=== PATIENT | male | born 1955 | race Caucasian/White ===

== ENCOUNTER 2021-12-22 13:58 | Outpatient (CLI) | payer OTHER, SELFPAY ==
--- NOTE | ~2021-12-22 | US_ITS ---
EXAMINATION: US arterial ankle brachial ind DATE: 12/22/2021 14:55 INDICATION: Left calf numbness and pain. 40 year smoker. TECHNIQUE: Segmental pressures and plethysmographic and Doppler waveforms of the brachial and lower e xtremity arteries were obtained. COMPARISON: None. FINDINGS: Right and left brachial artery pressures of 125 mm Hg and 131 mm Hg, respectively, are concordant (no rmal difference <= 30 mmHg). The right ankle-brachial index (KAYLA) is 1.17 (normal >= 0.9-1.0). The right great toe-brachial index (TBI) is 0.87 (normal >= 0.65). Arterial Doppler waveforms are biphasic at the posterior tibial arter y and triphasic at the dorsalis pedis artery. The left KAYLA is 1.11. The left TBI is 0.71. Arterial Doppler waveforms are biphasic. IMPRESSION: Normal bilateral KAYLA and TBI measurements Reviewed, dictated and finalized at [facility]. Reviewed, dictated and finalized at [facility].
== END 2021-12-22 13:59 | disposition home or self-care (01) ==
PROVIDERS: PCP Nurse Practitioner Family; Visit Provider Nurse Practitioner Family
DX: R09.89 Other specified symptoms and signs involving the circulatory and respiratory systems (principal); Z72.0 Tobacco use
CPT/HCPCS: 93922

== ENCOUNTER 2022-03-11 13:31 | Emergency (ER) | payer OTHER, SELFPAY ==
[2022-03-11 13:40] VITALS: BP 163/96; PULSE 83; RESP 20; TEMP 36.9; O2SAT 99
--- NOTE | 2022-03-11 14:03 | ED.ABDPAIN ---
HPI - Abdominal Pain General Chief Complaint: Abdominal Pain Stated Complaint: ABD PAIN Source: patient Mode of arrival: ambulatory Limitations: no limitations History of Present Illness HPI narrative: Patient presents for evaluation of leftlower quadrant abdominal pain. Symptom onset yesterday. Pain is intermittent, sharp, rated 6 out of 10 in severity. He has some nausea without vomiting. No fever, chills, change in bowel pattern. Last bowel movement this morning. Normal bowel pattern is 3 times per day. No blood or mucus in the stool. He has a history of diverticulitis and this feels similar. He states that he has received azithromycin 3 times in the past for diverticulitis and that alleviated his symptoms. He is up-to-date on colonoscopy. No hx of abdominal surgeries. He states stress causes a flare of diverticulitis. He has increased stress as of late. Related Data Home Medications Medication Instructions Recorded Confirmed melatonin 3 mg capsule 3 mg PO QPM 05/07/20 03/11/22 multivitamin 1 tablet PO DAILY 05/07/20 03/11/22 omega-3 fatty acids 1,000 mg 1,000 mg PO DAILY 05/17/20 03/11/22 capsule (Fish Oil Concentrate) pseudoephedrine HCl 30 mg tablet 30 mg PO Q4-6H PRN Nasal Congestion 12/13/21 03/11/22 (Sudafed) aluminum-mag hydroxide-simethicone 10 ml PO QID PRN Abdominal 03/11/22 03/11/22 200 mg-200 mg-20 mg/5 mL oral susp Discomfort famotidine 20 mg tablet (Pepcid) mg 03/11/22 Allergies Allergy/AdvReac Type Severity Reaction Status Date / Time ciprofloxacin Allergy Unknown Nausea And Verified 03/11/22 13:35 Vomiting Penicillins Allergy Unknown Rash Verified 03/11/22 13:35 Review of Systems Review of Systems: CONSTITUTIONAL: Denies fever, chills, or sweats. EYES: Denies visual changes, redness, or discharge. ENT: Denies rhinorrhea, congestion, sore throat, or otalgia. CARDIOVASCULAR: Denies chest pain, palpitations, or edema. RESPIRATORY: Denies cough or dyspnea. GASTROINTESTINAL: Reports abdominal pain. Denies nausea, vomiting, or diarrhea. GENITOURINARY: Denies dysuria or hematuria. SKIN: Denies rash or itching. MUSCULOSKELETAL: Denies back pain, joint pain, or myalgia. NEUROLOGIC: Denies headache, numbness, dizziness, or weakness. PSYCHIATRIC: Denies anxiety or depression. [facility] Past Medical History Medical History Anxiety Diverticulitis History of deviated nasal septum Hyperlipidemia Prediabetes Surgical History Surgical History History of nasal surgery deviated septum repair History of thyroidectomy partial - hx of thyroid nodules Family History Family History Father Hypertension Cerebrovascular accident, Onset Age: 84 Mother Cerebrovascular accident Family history of dementia Social History Social History Social History: Patient is to [place]. 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 Has smoked cigarettes for 50 years, max 1/2 pack per day. He smokes 1-2 cigarettes per day now. Years smoked: 50 Tobacco type: cigarettes Additional smoking assessment comments: 1-2 Cigarettes per day Alcohol intake: current Drinks per week: 2 Substance use: current Substance use type: marijuana Living arrangements: with family Gender identity (if verbalized by the patient): Male Sexual Orientation (if Verbalized by the Patient): Straight or Heterosexual Spiritual care concerns: No Exam Narrative: GENERAL: Well-appearing, well-nourished, and in no acute distress. HEAD: Normocephalic, atraumatic. EYES: PERRLA and EOMI. ENT: Nares clear, no rhinorrhea or epistaxis. Mucous membranes moist. Oropharynx without tonsillar hypertrophy exudate or other lesions. Bilateral TMs pearly ryan nonbulging NECK: Supple. No adenopathy
== END 2022-03-11 14:15 | disposition home or self-care (01) ==
PROVIDERS: Emergency Provider Nurse Practitioner; PCP Nurse Practitioner Family
DX: R10.9 Unspecified abdominal pain (principal); Z87.19 Personal history of other diseases of the digestive system; F17.210 Nicotine dependence, cigarettes, uncomplicated; E78.5 Hyperlipidemia, unspecified; R73.03 Prediabetes; F41.9 Anxiety disorder, unspecified
CPT/HCPCS: 99213; G0463

== ENCOUNTER 2022-08-07 01:55 | Day surgery (SDC) | payer OTHER, SELFPAY ==
[2022-07-28 12:50] VITALS: BMI 29.7
[2022-08-07 11:40] VITALS: BP 133/77; PULSE 71; RESP 18; TEMP 36.2; O2SAT 98; BMI 29.7
--- NOTE | 2022-08-07 11:52 | PM.HPGS ---
History of Present Illness History of Present Illness Consent: Risks, benefits, and alternatives have been discussed and questions answered. Patient agrees to proceed with procedure. Chief complaint: neoplasm screening, hx colon polyps Narrative: Dg Marie is a 66 year old male Presents for screening colonoscopy. Patient's current weight appetite bowel movements are normal. He denies abdominal pain. He has had no bleeding. Family history noncontributory. Patient does have a prior history of colon polyps on several previous occasions. Patient presents today for surveillance screening colonoscopy. Review of Systems Review of Systems: Review of systems noncontributory. [facility] Past Medical History Medical History (Updated 08/07/22 @ 11:53 by Arthur oDzier MD) Anxiety Aortic valve stenosis (~05/2022) Diverticulitis Enlarged prostate (~01/2022) Erectile dysfunction GERD without esophagitis History of deviated nasal septum Hyperlipidemia Murmur, cardiac (~05/2022) Prediabetes Surgical History Surgical History History of nasal surgery deviated septum repair History of thyroidectomy partial - hx of thyroid nodules Family History Family History Father Hypertension Cerebrovascular accident, Onset Age: 84 Mother Cerebrovascular accident Family history of dementia Social History Social History (Updated 06/23/22 @ 20:04 by Elba Lopez NP) Social History: Patient is to [place]. 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 Has smoked cigarettes for 50 years, max 1/2 pack per day. He smokes 1-2 cigarettes per day now. Smoking packs per day: 0.5 Smoking cigarettes per day: 10.0 Years smoked: 40 Smoking pack-years: 20.00 Smoking status: Current every day smoker Tobacco type: cigarettes and e-cigarettes/vaping Additional smoking assessment comments: Since 2017, e-cigarettes only Alcohol intake: current Drinks per week: 2 Substance use: current Substance use type: marijuana Other substance usage details: every few weeks Living arrangements: with family Gender identity (if verbalized by the patient): Male Sexual Orientation (if Verbalized by the Patient): Straight or Heterosexual Spiritual care concerns: No Meds Home Medications and Allergies Home Medications Medication Instructions Recorded Confirmed Type melatonin 3 mg capsule 3 mg PO QPM 05/07/20 08/07/22 History multivitamin 1 tablet PO DAILY 05/07/20 08/07/22 History omega-3 fatty acids 1,000 mg 1,000 mg PO DAILY 05/17/20 08/07/22 History capsule (Fish Oil Concentrate) pseudoephedrine HCl 30 mg tablet 30 mg PO Q4-6H PRN Nasal Congestion 12/13/21 08/07/22 History (Sudafed) aluminum-mag hydroxide-simethicone 10 ml PO QID PRN Abdominal 03/11/22 08/07/22 History 200 mg-200 mg-20 mg/5 mL oral susp Discomfort famotidine 20 mg tablet (Pepcid) 20 mg PO DAILY 03/11/22 08/07/22 History sildenafil 50 mg tablet 50 mg PO DAILY PRN sexual activity 05/02/22 08/07/22 Rx #30 tabs lorazepam 1 mg tablet 1 mg PO BID PRN anxiety 07/28/22 08/07/22 History Allergies Allergy/AdvReac Type Severity Reaction Status Date / Time ciprofloxacin Allergy Unknown Nausea And Verified 08/07/22 11:44 Vomiting Penicillins Allergy Unknown Rash Verified 08/07/22 11:44 Vital Signs Vital Signs - 24 hr 08/07/22 11:40 Temperature 97.2 F L Pulse Rate 71 Respiratory Rate 18 Blood Pressure 133/77 Pulse Oximetry 98 Oxygen Delivery Room Air Exam Narrative: Physical exam reveals patient to be alert. Vital signs stable. HEENT exam is unremarkable. Patient is anicteric. Lungs are clear to auscultation and percussion. Heart is without murmur or extra sounds. Abdomen bowel sounds are present soft nontender with no hepatosplenomegaly. Digital external rectal exam is normal. Assessment and Pl
[2022-08-07] MEDS: LACTATED RINGERS 1,000 ML 150 ML IV CONT (11:59)
--- NOTE | 2022-08-07 12:47 | WPDANESEPPF ---
Anes - Initial Pre Proc Eval Procedure: Operation Date: 08/07/22 13:00 Proposed Procedures p Screening Colonoscopy - Arthur Dozier MD Date/Time: 08/07/22 12:47 Surgeon: Arthur Dozier MD Pre Op Diagnosis: neoplasm screening, hx colon polyps Patient Data Age: 66 Gender: M Height: 1.73 m Weight: 88.8 kg Last Vital Signs Temp 97.2 F L 08/07/22 11:40 Pulse 71 08/07/22 11:40 Resp 18 08/07/22 11:40 BP 133/77 08/07/22 11:40 Pulse Ox 98 08/07/22 11:40 O2 Del Method Room Air 08/07/22 11:40 Allergies Allergy/AdvReac Type Severity Reaction Status Date / Time ciprofloxacin Allergy Unknown Nausea And Verified 08/07/22 11:44 Vomiting Penicillins Allergy Unknown Rash Verified 08/07/22 11:44 Home Medications Medication Instructions Recorded Confirmed Type melatonin 3 mg capsule 3 mg PO QPM 05/07/20 08/07/22 History multivitamin 1 tablet PO DAILY 05/07/20 08/07/22 History omega-3 fatty acids 1,000 mg 1,000 mg PO DAILY 05/17/20 08/07/22 History capsule (Fish Oil Concentrate) pseudoephedrine HCl 30 mg tablet 30 mg PO Q4-6H PRN Nasal Congestion 12/13/21 08/07/22 History (Sudafed) aluminum-mag hydroxide-simethicone 10 ml PO QID PRN Abdominal 03/11/22 08/07/22 History 200 mg-200 mg-20 mg/5 mL oral susp Discomfort famotidine 20 mg tablet (Pepcid) 20 mg PO DAILY 03/11/22 08/07/22 History sildenafil 50 mg tablet 50 mg PO DAILY PRN sexual activity 05/02/22 08/07/22 Rx #30 tabs lorazepam 1 mg tablet 1 mg PO BID PRN anxiety 07/28/22 08/07/22 History Patient hx anesthesia problems: none Family hx anesthesia problems: none Results Review: All pre-operative results and documents have been reviewed as part of the pre-operative evaluation. [facility] Past Medical History Medical History (Updated 08/07/22 @ 11:53 by Arthur Dozier MD) Anxiety Aortic valve stenosis (~05/2022) Diverticulitis Enlarged prostate (~01/2022) Erectile dysfunction GERD without esophagitis History of deviated nasal septum Hyperlipidemia Murmur, cardiac (~05/2022) Prediabetes Surgical History Surgical History History of nasal surgery deviated septum repair History of thyroidectomy partial - hx of thyroid nodules Family History Family History Father Hypertension Cerebrovascular accident, Onset Age: 84 Mother Cerebrovascular accident Family history of dementia Social History Social History (Updated 06/23/22 @ 20:04 by Elba Lopez NP) Social History: Patient is to [place]. 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 Has smoked cigarettes for 50 years, max 1/2 pack per day. He smokes 1-2 cigarettes per day now. Smoking packs per day: 0.5 Smoking cigarettes per day: 10.0 Years smoked: 40 Smoking pack-years: 20.00 Smoking status: Current every day smoker Tobacco type: cigarettes and e-cigarettes/vaping Additional smoking assessment comments: Since 2017, e-cigarettes only Alcohol intake: current Drinks per week: 2 Substance use: current Substance use type: marijuana Other substance usage details: every few weeks Living arrangements: with family Gender identity (if verbalized by the patient): Male Sexual Orientation (if Verbalized by the Patient): Straight or Heterosexual Spiritual care concerns: No Anes - Eval Final PreProcedure Day of Procedure 08/07/22 12:47 Patient weight: normal Heart: regular rate and rhythm Lungs: clear to auscultation Airway: Mallampati scale class II Neurological: alert and oriented Last oral intake: >/= 8 hours ASA classification: III Emergent: no Anesthetic plan: proceed Anesthesia type and monitoring: general GIVS and standard monitoring Results Review: All pre-operative results and documents have been reviewed as part of the pre-operative evaluation. Informed Consent: The patient's anesthetic p
[2022-08-07 13:27] VITALS: BP 105/64; PULSE 57; RESP 18; O2SAT 96
[2022-08-07 13:37] VITALS: BP 93/57; PULSE 54; RESP 18; O2SAT 96
[2022-08-07 13:47] VITALS: BP 106/70; PULSE 53; RESP 18; O2SAT 97
== END 2022-08-07 14:03 | disposition home or self-care (01) ==
PROVIDERS: PCP Nurse Practitioner Family; Visit Provider Internal Medicine Gastroenterology
PROC: 0DJD8ZZ Inspection of Lower Intestinal Tract, Via Natural or Artificial Opening Endoscopic (ICD-10-PCS; CPT 45378; principal; 2022-08-07 13:00)
DX: Z12.11 Encounter for screening for malignant neoplasm of colon (principal); K64.8 Other hemorrhoids; K57.30 Diverticulosis of large intestine without perforation or abscess without bleeding; Z86.010 Personal history of colon polyps; E78.5 Hyperlipidemia, unspecified; K21.9 Gastro-esophageal reflux disease without esophagitis; N40.0 Benign prostatic hyperplasia without lower urinary tract symptoms; I35.0 Nonrheumatic aortic (valve) stenosis; F17.290 Nicotine dependence, other tobacco product, uncomplicated; F12.90 Cannabis use, unspecified, uncomplicated
CPT/HCPCS: 45378; J2704; J7120

== ENCOUNTER 2023-02-14 20:40 | Emergency (ER) | payer OTHER, SELFPAY ==
--- NOTE | ~2023-02-14 | XR_ITS ---
EXAMINATION: XR chest 2V Exam Date/Time: 02/14/2023 21:06 CDT HISTORY: chest pain Comparison: 11/25/2015. RESULT: Lines, tubes, and devices: None. Lungs and pleura: Clear. Cardiomediastinal silhouette: Stable. Other: No acute osseous or upper abdominal finding. IMPRESSION: No acute cardiopulmonary process. Reviewed, dictated and finalized at location [facility].
--- NOTE | ~2023-02-14 | CT_ITS ---
EXAMINATION: CT brain wo con DATE: 02/14/2023 21:09 INDICATION: dizziness, weakness, blurry vision . TECHNIQUE: Computed tomography (CT) of the head was performed without intravenous contrast. The mA wa s adjusted according to patient size. Iterative reconstruction technique was employed. The dose-lengt h product was 605.33 mGy-cm. COMPARISON: 06/21/2010. FINDINGS: No acute intracranial hemorrhage or extra-axial fluid collection. No hydrocephalus, mass, or herniation. No acute ischemic infarct. Unremarkable dural venous sinus attenuation. No acute osseous abnormality. The aerated spaces are clear. IMPRESSION: No acute intracranial process. Reviewed, dictated and finalized at location [facility].
--- NOTE | ~2023-02-14 | CT_ITS ---
Clinical Indication: Chest pain, dizziness CT Scan of the Chest, Abdomen, and Pelvis with Contrast: Technique: Contiguous sections were acquired throughout the chest, abdomen, and pelvis after intraven ous administration of 100 cc of Omnipaque 350. Dose reduction technique was used on this scan by annalise robbins automated exposure control and iterative reconstruction technique. The dose-length product (DL P) was 987.81 mGy-cm. Findings: Status post right hemithyroidectomy. There is no evidence of any significant mediastinal, hilar or axillary lymphadenopathy. The mediastin al soft tissues appear normal. No aortic aneurysm or dissection. No large central pulmonary embolus s een. There is no evidence of pleural or pericardial effusion. The lungs are clear. No pulmonary nodules or infiltrates are noted. There is diffuse fatty infiltration of the liver. The spleen, pancreas, gallbladder, adrenals and kid neys are within normal limits. There are atherosclerotic calcifications of the aorta. No abdominal ao rtic aneurysm or dissection. No lymphadenopathy. No bowel obstruction or bowel wall thickening. There is colonic diverticulosis. Urinary bladder is unremarkable. Prostate gland is enlarged. Impression: No aortic aneurysm or dissection. No acute abnormality seen. Fatty infiltration of liver. Enlarged prostate gland. Reviewed, dictated and finalized at location . Impression: No aortic aneurysm or dissection. No acute abnormality seen. Fatty infiltration of liver. Enlarged prostate gland.
--- NOTE | 2023-02-14 20:41 | ECG_ITS ---
Measurements Intervals [place] Rate: 86 P: 55 MT: 151 QRS: -64 QRSD: 142 T: -12 QT: 383 QTc: 460 Interpretive Statements SINUS RHYTHM RIGHT BUNDLE BRANCH BLOCK LEFT ANTERIOR FASCICULAR BLOCK VOLTAGE CRITERIA FOR LVH BASELINE ARTIFACT- III, AVF, V5 ABNORMAL ECG NO PREVIOUS ECG AVAILABLE FOR COMPARISON Electronically Signed On 02-15-2023 8:09:17 CDT by Jarad Rodriguez D.O.
[2023-02-14 20:51] VITALS: BP 162/101; PULSE 79; RESP 20; TEMP 36.4; O2SAT 98
[2023-02-14 20:56] LABS: Basophils Absolute Auto 0.1 K/mm3 (0.0-0.1); Basophils Percent Auto 0.6 % (0.2-1.2); Eosinophils Percent Auto 0.5 % (0-4.4); Hematocrit 46.8 % (42.0-52.0); Hemoglobin 16.3 g/dL (14.0-18.0); Immature Granulocyte Absolute 0.02 K/mm3 (0.00-0.031); Immature Granulocyte Percent A 0.2 % (0-0.5); Lymphocytes Absolute Auto 3.86 K/mm3 (0.9-3.2); Lymphocytes Percent Auto 45.4 % (18.3-44.2); Mean Corpuscular HGB Conc 34.8 g/dl (32-36); Mean Corpuscular Volume 83.1 fl (80-100); Mean Platelet Volume 9.7 fl (7.4-10.4); Monocytes Absolute Auto 0.5 K/mm3 (0.1-0.6); Monocytes Percent Auto 6.2 % (2.6-8.5); Neutrophils Percent Auto 47.1 % (45.5-73.1); Platelet Count Result 246 k/mm3 (150-375); Red Blood Count 5.63 M/mm3 (4.6-6.20); Red Cell Distribution Width 13.8 % (11.5-14.5); White Blood Count 8.5 K/mm3 (4.5-10.0)
[2023-02-14 20:59] LABS: Glucose Point of Care 111 mg/dl (65-105)
[2023-02-14 21:06] LABS: INR 0.9; Partial Thromboplastin Time 25.7 SECONDS (22.3-36.8); Prothrombin Time 12.7 Seconds (11.1-14.7)
[2023-02-14 21:07] LABS: Alanine Aminotransferase 38 U/L (6-50); Albumin Level 4.8 g/dL (3.5-5.1); Alkaline Phosphatase 61 U/L (38-126); Anion Gap 10 mmol/L (8-16); Aspartate Amino Transferase 34 U/L (17-59); Bilirubin,Total 0.7 mg/dL (0.2-1.3); Blood Urea Nitrogen 17 mg/dL (9-20); Calcium 9.1 mg/dL (8.4-10.2); Carbon Dioxide 23 mmol/L (22-30); Chloride 103 mmol/L (98-107); Estimated CRCL calculation 77 ml/min; Estimated Glomerular Filt Rate > 60; Glucose 99 mg/dL (65-110); Lipase 118 U/L (23-300); Potassium 3.7 mmol/L (3.4-5.0); Sodium 136 mmol/L (137-145)
[2023-02-14 21:18] LABS: Troponin I < 0.012 ng/mL (0.000-0.034)
[2023-02-14] MEDS: BELLADONNA ALK/PHENOB ELIX 10 ML, MAG HYDROX/ALUMINUM HYD/SIMETH 30 ML, LIDOCAINE HCL 2... PO (22:42)
[2023-02-14] MEDS: LORazepam (*CRX) 1 MG TABLET PO (22:43)
--- NOTE | 2023-02-14 23:14 | ED.GENADULT ---
HPI - General Adult General Chief complaint: Chest Pain Stated complaint: chest pain Time Seen by Provider: 02/14/23 22:08 Related Data Home Medications Medication Instructions Recorded Confirmed melatonin 3 mg capsule 3 mg PO QPM 05/07/20 01/09/23 multivitamin 1 tablet PO DAILY 05/07/20 01/09/23 omega-3 fatty acids 1,000 mg 1,000 mg PO DAILY 05/17/20 01/09/23 capsule (Fish Oil Concentrate) pseudoephedrine HCl 30 mg tablet 30 mg PO Q4-6H PRN Nasal Congestion 12/13/21 01/09/23 (Sudafed) aluminum-mag hydroxide-simethicone 10 ml PO QID PRN Abdominal 03/11/22 01/09/23 200 mg-200 mg-20 mg/5 mL oral susp Discomfort famotidine 20 mg tablet (Pepcid) 20 mg PO DAILY 03/11/22 01/09/23 Allergies Allergy/AdvReac Type Severity Reaction Status Date / Time ciprofloxacin Allergy Unknown Nausea And Verified 02/14/23 21:54 Vomiting Penicillins Allergy Unknown Rash Verified 02/14/23 21:54 [facility] Past Medical History Medical History Anxiety Aortic valve stenosis (~05/2022) Diverticulitis Enlarged prostate (~01/2022) Erectile dysfunction GERD without esophagitis History of deviated nasal septum Hyperlipidemia Murmur, cardiac (~05/2022) Prediabetes Surgical History Surgical History History of nasal surgery deviated septum repair History of thyroidectomy partial - hx of thyroid nodules Family History Family History Father Hypertension Cerebrovascular accident, Onset Age: 84 Mother Cerebrovascular accident Family history of dementia Social History Social History (Updated 01/09/23 @ 15:03 by Margo Beltrán MA) Social History: Patient is to [place]. 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 Has smoked cigarettes for 50 years, max 1/2 pack per day. He smokes 1-2 cigarettes per day now. Smoking packs per day: 0.5 Smoking cigarettes per day: 10.0 Years smoked: 40 Smoking pack-years: 20.00 Smoking status: Current every day smoker Tobacco type: cigarettes and e-cigarettes/vaping Additional smoking assessment comments: Since 2017, e-cigarettes only Alcohol intake: current Drinks per week: 2 Substance use: current Substance use type: marijuana Other substance usage details: every few weeks Lack of Transportation: No Lack of Food: Never True Current Housing: I Have Housing Concerned About Future Housing: No Difficulty Paying Gas/Electric Bills: No Difficulty Paying for Meds: No Currently Unemployed: No Education: Master's Degree or Higher Difficulty w/ Childcare or Family Care: No Living arrangements: with family Occupation/Education: occupation Gender identity (if verbalized by the patient): Male Sexual Orientation (if Verbalized by the Patient): Straight or Heterosexual Spiritual care concerns: No Agree to blood products: Yes Course Vital Signs Vital signs: Vital Signs Temperature 97.6 F 02/14/23 20:51 Pulse Rate 79 02/14/23 20:51 Respiratory Rate 20 02/14/23 20:51 Blood Pressure 162/101 H 02/14/23 20:51 Pulse Oximetry 98 02/14/23 20:51 Oxygen Delivery Room Air 02/14/23 20:51 Temperature 97.6 F 02/14/23 20:51 Pulse Rate 79 02/14/23 20:51 Respiratory Rate 20 02/14/23 20:51 Blood Pressure 162/101 H 02/14/23 20:51 Pulse Oximetry 98 02/14/23 20:51 Oxygen Delivery Room Air 02/14/23 20:51 Medical Decision Making Vital Signs Vital Signs: Vital Signs Temperature 97.6 F 02/14/23 20:51 Pulse Rate 79 02/14/23 20:51 Respiratory Rate 20 02/14/23 20:51 Blood Pressure 162/101 H 02/14/23 20:51 Pulse Oximetry 98 02/14/23 20:51 Oxygen Delivery Room Air 02/14/23 20:51 Temperature 97.6 F 02/14/23 20:51 Pulse Rate 79 02/14/23 20:51 Respiratory Rate 20 02/14/23 20:51 Blood Pressure 162/101 H 02/14/23 20:
--- NOTE | 2023-02-14 23:14 | ED.CHESTPAIN ---
HPI - Chest Pain General Chief Complaint: Chest Pain Stated Complaint: chest pain Time Seen by Provider: 02/14/23 22:08 History of Present Illness HPI narrative: This is a 67-year-old male, with past history of aortic stenosis, who presents to the emergency department complaining of substernal burning chest pain and dizziness. The patient states approximately 3 hours prior to arrival, he was walking downstairs when he felt substernal burning pain, rated 5/10, similar to heartburn, without radiation. He states that it lasted approximately 30 to 45 minutes and has since resolved. He describes the dizziness as mild vertigo but denies focal weakness, numbness, loss of consciousness or change/loss of vision/hearing. Related Data Home Medications Medication Instructions Recorded Confirmed melatonin 3 mg capsule 3 mg PO QPM 05/07/20 01/09/23 multivitamin 1 tablet PO DAILY 05/07/20 01/09/23 omega-3 fatty acids 1,000 mg 1,000 mg PO DAILY 05/17/20 01/09/23 capsule (Fish Oil Concentrate) pseudoephedrine HCl 30 mg tablet 30 mg PO Q4-6H PRN Nasal Congestion 12/13/21 01/09/23 (Sudafed) aluminum-mag hydroxide-simethicone 10 ml PO QID PRN Abdominal 03/11/22 01/09/23 200 mg-200 mg-20 mg/5 mL oral susp Discomfort famotidine 20 mg tablet (Pepcid) 20 mg PO DAILY 03/11/22 01/09/23 Allergies Allergy/AdvReac Type Severity Reaction Status Date / Time ciprofloxacin Allergy Unknown Nausea And Verified 02/14/23 21:54 Vomiting Penicillins Allergy Unknown Rash Verified 02/14/23 21:54 Review of Systems Review of Systems: CONSTITUTIONAL: Denies fever, chills, or sweats. EYES: Denies visual changes, redness, or discharge. ENT: Denies rhinorrhea, congestion, sore throat, or otalgia. CARDIOVASCULAR: Chest pain denies palpitations, or edema. RESPIRATORY: Denies cough or dyspnea. GASTROINTESTINAL: Denies abdominal pain, nausea, vomiting, or diarrhea. GENITOURINARY: Denies dysuria or hematuria. SKIN: Denies rash or itching. MUSCULOSKELETAL: Denies back pain, joint pain, or myalgia. NEUROLOGIC: Dizziness denies headache, numbness, or weakness. PSYCHIATRIC: Denies anxiety or depression. [facility] Past Medical History Medical History Anxiety Aortic valve stenosis (~05/2022) Diverticulitis Enlarged prostate (~01/2022) Erectile dysfunction GERD without esophagitis History of deviated nasal septum Hyperlipidemia Murmur, cardiac (~05/2022) Prediabetes Surgical History Surgical History History of nasal surgery deviated septum repair History of thyroidectomy partial - hx of thyroid nodules Family History Family History Father Hypertension Cerebrovascular accident, Onset Age: 84 Mother Cerebrovascular accident Family history of dementia Social History Social History Social History: Patient is to [place]. 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 Has smoked cigarettes for 50 years, max 1/2 pack per day. He smokes 1-2 cigarettes per day now. Smoking packs per day: 0.5 Smoking cigarettes per day: 10.0 Years smoked: 40 Smoking pack-years: 20.00 Smoking status: Current every day smoker Tobacco type: cigarettes and e-cigarettes/vaping Additional smoking assessment comments: Since 2017, e-cigarettes only Alcohol intake: current Drinks per week: 2 Substance use: current Substance use type: marijuana Other substance usage details: every few weeks Lack of Transportation: No Lack of Food: Never True Current Housing: I Have Housing Concerned About Future Housing: No Difficulty Paying Gas/Electric Bills: No Difficulty Paying for Meds: No Currently Unemployed: No Education: Master's Degree or Higher Difficulty w/ Childcare or Family Care: No Living arrangements:
[2023-02-15 00:39] LABS: Troponin I < 0.012 ng/mL (0.000-0.034)
[2023-02-15 01:05] VITALS: BP 125/87; PULSE 60; RESP 13; O2SAT 96
== END 2023-02-15 01:07 | disposition home or self-care (01) ==
PROVIDERS: Emergency Provider Preventive Medicine Aerospace Medicine; PCP Nurse Practitioner Family
DX: R07.89 Other chest pain (principal); E04.1 Nontoxic single thyroid nodule; I35.0 Nonrheumatic aortic (valve) stenosis; E78.5 Hyperlipidemia, unspecified; N40.0 Benign prostatic hyperplasia without lower urinary tract symptoms; K21.9 Gastro-esophageal reflux disease without esophagitis; R73.03 Prediabetes; E89.0 Postprocedural hypothyroidism; F17.210 Nicotine dependence, cigarettes, uncomplicated; I45.2 Bifascicular block
CPT/HCPCS: 36415; 70450; 71046; 71275; 74174; 80053; 82948; 83690; 84443; 84484; 85025; 85610; 85730; 93005; 99284; A9270; Q9967

== ENCOUNTER 2023-02-28 11:10 | Outpatient (CLI) | payer OTHER, SELFPAY ==
--- NOTE | ~2023-02-28 | US_ITS ---
EXAMINATION: US thyroid DATE: 02/28/2023 12:18 INDICATION: Nontoxic single thyroid nodule. TECHNIQUE: Multiple ultrasound images of the thyroid were obtained. COMPARISON: neck CT 01/26/17, chest CT 02/14/23 FINDINGS: The right thyroid lobe is absent. The left thyroid lobe measures 6.3 x 3.2 x 2.8 cm. In the left thy roid lobe, there is an 8 mm solid, isoechoic, wider than tall nodule with smooth margin without echog enic foci (TI-RADS TR4). In the left thyroid lobe, there is a 12 mm solid, hypoechoic, wider than nu l nodule with smooth margin without echogenic foci (TR4). In the left thyroid lobe, there is a 2.8 cm solid, hypoechoic, wider than tall nodule with ill-defined margin without echogenic foci (TR4). In t he left thyroid lobe, there is a 1.8 cm solid, hypoechoic, wider than tall nodule with ill-defined ma rgin without echogenic foci (TR4). IMPRESSION: 1. Multinodular goiter, stable from 01/26/2017, likely not clinically significant. Reviewed, dictated and finalized at location A. IMPRESSION: 1. Multinodular goiter, stable from 01/26/2017, likely not clinically significant .
== END 2023-02-28 11:11 | disposition home or self-care (01) ==
PROVIDERS: PCP Nurse Practitioner Family; Visit Provider Nurse Practitioner Family
DX: E04.2 Nontoxic multinodular goiter (principal)
CPT/HCPCS: 76536

== ENCOUNTER 2023-04-30 12:35 | Outpatient (CLI) | payer OTHER, SELFPAY ==
--- NOTE | ~2023-04-30 | US_ITS ---
EXAMINATION: 1. US FNA w image guidance 2. US FNA additional DATE: 04/30/2023 13:42 INDICATION: Multinodular goiter. TECHNIQUE: The procedure and its benefits and risks were discussed with the patient. Risks specifically discusse d included bleeding. The patient verbalized understanding of the risks and agreed to proceed. The nec k was prepped and draped in the usual sterile manner. 1% lidocaine was used for local anesthesia. F debbi passes were made with a 25G needle into the lesion in inferior lateral left thyroid lobe under ul trasound guidance. Five passes were made with a 25-gauge needle into the lesion in inferior medial left thyroid lobe und er ultrasound guidance. There were no immediate complications. FINDINGS: Grayscale ultrasound images demonstrate needles advanced into a 2.7 cm nodule in inferior lateral lef t thyroid lobe for biopsy. Grayscale ultrasound images demonstrate needles advanced into a 1.6 cm nod ule in inferior medial left thyroid lobe for biopsy. IMPRESSION: 1. Ultrasound-guided fine needle aspiration of a 2.7 cm nodule in inferior lateral left thyroid lobe . 2. Ultrasound-guided fine-needle aspiration of a 1.6 cm nodule in inferior medial left thyroid lobe. Reviewed, dictated and finalized at location A. IMPRESSION: 1. Ultrasound-guided fine needle aspiration of a 2.7 cm nodule in inferior lat eral left thyroid lobe. 2. Ultrasound-guided fine-needle aspiration of a 1.6 cm nodule in inferior medi al left thyroid lobe.
== END 2023-04-30 12:36 | disposition home or self-care (01) ==
PROVIDERS: PCP Nurse Practitioner Family; Visit Provider Internal Medicine
DX: R91.8 Other nonspecific abnormal finding of lung field (principal)
CPT/HCPCS: 10005; 10006; 88173; 88305

== ENCOUNTER 2024-03-06 15:56 | Outpatient (CLI) | payer MEDICARE, SELFPAY ==
--- NOTE | ~2024-03-06 | CT_ITS ---
CT Scan of the Chest without Contrast: Clinical Indication: Lung cancer screening, nicotine dependence Technique: Contiguous sections were acquired throughout the chest without intravenous contrast. Dose reduction technique was used on this scan by utilizing automated exposure control and iterative recon struction technique. The dose-length product (DLP) was 189.60 mGy-cm. IMPRESSION: 02/14/2023 Findings: Stable large left thyroid lobe. There is no evidence of any significant mediastinal, hilar or axillary lymphadenopathy. The mediastin al soft tissues appear normal. There is no evidence of pleural or pericardial effusion. The lungs are clear. No pulmonary nodules or infiltrates are noted. Images through the upper abdomen reveal no abnormalities. Impression: Lung RADS 1: Negative. 12 month follow-up screening CT advised. Reviewed, dictated and finalized at [facility]. IMPRESSION: 02/14/2023 Findings: Stable large left thyroid lobe. There is no evidence of any significant mediastinal, hilar or axillary lymphade nopathy. The mediastinal soft tissues appear normal. There is no evidence of pleural or pericardial effusion. The lungs are clear. No pulmonary nodules or infiltrates are noted. Images through the upper abdomen reveal no abnormalities. Impression: Lung RADS 1: Negative. 12 month follow-up screening CT advised.
--- NOTE | ~2024-03-06 | US_ITS ---
EXAMINATION: US thyroid DATE: 03/06/2024 16:47 INDICATION: Nontoxic multinodular goiter TECHNIQUE: Multiple ultrasound images of the thyroid were obtained. COMPARISON: 02/28/2023 FINDINGS: Status post right thyroidectomy with no residual thyroid tissue identified at the right thyroid fossa . The left thyroid lobe measures 6.0 x 2.8 x 2.8 cm. There are several left thyroid nodules. These i nclude a 2.3 cm solid wider than tall hypoechoic nodule with smooth to ill-defined margins and withou t echogenic foci (TI-RADS 4, moderately suspicious , FNA if >=1.5 cm, annual followup is >=1 cm) whic h is decreased in size from 2.8 cm. There is a second 1.2 cm more superficial Ti rads 4 left thyroid nodule with similar imaging features. 1.8 cm mixed hypoechoic solid and cystic nodule mid inferior le ft thyroid lobe with smooth margins and without echogenic foci (TI-RADS 3, mildly suspicious , FNA if >=2.5 cm, annual followup is >=1.5 cm). There is a second 6 mm TI RADS 3 nodule with similar imaging features at the remaining left-sided the thyroid isthmus. IMPRESSION: 1. Status post right thyroidectomy with a few nodules in the remaining left thyroid lobe. Decrease i n size from 2.8 to 2.3 cm of the single thyroid 4 nodule meeting criteria for biopsy. Given the inter silvina decrease in size could consider continued ultrasound follow-up. Reviewed, dictated and finalized at location A. IMPRESSION: 1. Status post right thyroidectomy with a few nodules in the remaining left thy roid lobe. Decrease in size from 2.8 to 2.3 cm of the single thyroid 4 nodule meeting criteria for biopsy. Given the interval decrease in size could consider continued ultrasound follow-up.
== END 2024-03-06 15:57 | disposition home or self-care (01) ==
PROVIDERS: PCP Family Medicine; Referring Provider Nurse Practitioner; Visit Provider Internal Medicine
DX: E04.2 Nontoxic multinodular goiter (principal); Z12.2 Encounter for screening for malignant neoplasm of respiratory organs; Z87.891 Personal history of nicotine dependence; Z98.890 Other specified postprocedural states
CPT/HCPCS: 71271; 76536

== ENCOUNTER 2024-07-15 12:45 | Outpatient (CLI) | payer MEDICARE, SELFPAY ==
--- NOTE | ~2024-07-15 | US_ITS ---
EXAMINATION: US THYROID BIOPSY DATE: 07/16/2024 13:48 CDT INDICATION: TIRADs 4 nodule within the left lobe of thyroid gland. Of note, the right lobe of the thyroid gland has been removed (for benign disease). TECHNIQUE: The procedure for biopsy of the thyroid nodule and its benefits and risks were explained to the patie nt. Potential risk included were not limited to bleeding, infection, and nondiagnostic specimen. The neck was prepped and draped in the usual sterile manner. 3 cc 1% lidocaine was used for local an esthesia. [3 passes were made with a 25G needle into the nodule within the left lobe of the thyroid gland. Appropriate needle location was documented with continuous sonographic guidance. The specime ns were passed to the cytopathologist in the room. All needles were removed and a sterile bandage applied over the biopsy site. The patient tolerated t he procedure without immediate complications or complaints. FINDINGS: Subsequent images demonstrate needles advanced into the lesion for biopsy. IMPRESSION: 1. Successful ultrasound guided biopsy of TI-RADS 4 nodule within the left lobe of the thyroid gland . Please refer to pathology report for final histologic analysis. Reviewed, dictated and finalized at location A. IMPRESSION: 1. Successful ultrasound guided biopsy of TI-RADS 4 nodule within the left lob e of the thyroid gland. Please refer to pathology report for final histologic analysis.
== END 2024-07-15 12:46 | disposition home or self-care (01) ==
PROVIDERS: PCP Family Medicine; Visit Provider Internal Medicine
DX: E04.1 Nontoxic single thyroid nodule (principal)
CPT/HCPCS: 10005; 88172; 88173; 88177; 88305

== ENCOUNTER 2024-08-05 10:23 | Outpatient (CLI) | payer MEDICARE, SELFPAY ==
[2024-08-05 14:46] LABS: Alanine Aminotransferase 34 U/L (6-50); Albumin Level 4.5 g/dL (3.5-5.1); Alkaline Phosphatase 58 U/L (38-126); Anion Gap 7 mmol/L (4-12); Aspartate Amino Transferase 41 U/L (17-59); Bilirubin,Total 0.7 mg/dL (0.2-1.3); Blood Urea Nitrogen 19 mg/dL (9-20); Calcium 9.6 mg/dL (8.4-10.2); Carbon Dioxide 30 mmol/L (22-30); Chloride 103 mmol/L (98-107); Cholesterol 226 mg/dL (0-200); Estimated Glomerular Filt Rate > 60; Glucose 121 mg/dL (65-110); HDL Direct 45 mg/dL; Potassium 5.3 mmol/L (3.4-5.0); Sodium 140 mmol/L (137-145); Triglycerides 138 mg/dL (<150)
[2024-08-05 14:49] LABS: Basophils Percent Auto 0.6 % (0.2-1.2); Eosinophils Absolute Auto 0.1 K/mm3 (0-0.3); Eosinophils Percent Auto 0.9 % (0-4.4); Hematocrit 51.6 % (42.0-52.0); Hemoglobin 16.5 g/dL (14.0-18.0); Immature Granulocyte Absolute 0.03 K/mm3 (0.00-0.031); Immature Granulocyte Percent A 0.4 % (0-0.5); Lymphocytes Absolute Auto 2.55 K/mm3 (0.9-3.2); Lymphocytes Percent Auto 36.3 % (18.3-44.2); Mean Corpuscular Hemoglobin 27.7 pg (26-34); Mean Corpuscular Volume 86.7 fl (80-100); Mean Platelet Volume 10.6 fl (7.4-10.4); Monocytes Absolute Auto 0.5 K/mm3 (0.1-0.6); Monocytes Percent Auto 7.7 % (2.6-8.5); Neutrophils Absolute Auto 3.8 K/mm3 (1.3-6.7); Neutrophils Percent Auto 54.1 % (45.5-73.1); Platelet Count Result 246 k/mm3 (150-375); Red Blood Count 5.95 M/mm3 (4.6-6.20); Red Cell Distribution Width 14.1 % (11.5-14.5)
[2024-08-05 15:01] LABS: LDL Cholesterol Direct 131 mg/dL
[2024-08-05 16:12] LABS: Hemoglobin A1C 6.1 % (<5.7); Vitamin D 25 Hydroxy 38.8 ng/mL
== END 2024-08-05 10:24 | disposition home or self-care (01) ==
LOC: ANHGOSHLAB 10:24
PROVIDERS: PCP Family Medicine; Visit Provider Family Medicine
DX: E78.5 Hyperlipidemia, unspecified (principal); E53.8 Deficiency of other specified B group vitamins; I10 Essential (primary) hypertension; I35.0 Nonrheumatic aortic (valve) stenosis; Z79.899 Other long term (current) drug therapy; E55.9 Vitamin D deficiency, unspecified; Z00.00 Encounter for general adult medical examination without abnormal findings; R73.03 Prediabetes
CPT/HCPCS: 36415; 80053; 80061; 82306; 82607; 83036; 84443; 85025

== ENCOUNTER 2024-08-25 15:22 | Outpatient (CLI) | payer MEDICARE, SELFPAY ==
[2024-08-25 20:26] LABS: Anion Gap 6 mmol/L (4-12); Blood Urea Nitrogen 15 mg/dL (9-20); Calcium 9.5 mg/dL (8.4-10.2); Carbon Dioxide 29 mmol/L (22-30); Chloride 103 mmol/L (98-107); Estimated Glomerular Filt Rate > 60; Glucose 128 mg/dL (65-110); Potassium 4.4 mmol/L (3.4-5.0); Sodium 138 mmol/L (137-145)
== END 2024-08-25 15:23 | disposition home or self-care (01) ==
LOC: ANHGOSHLAB 15:23
PROVIDERS: PCP Family Medicine; Visit Provider Family Medicine
DX: E87.5 Hyperkalemia (principal)
CPT/HCPCS: 36415; 80048

== ENCOUNTER 2024-12-12 12:53 | Outpatient (CLI) | payer MEDICARE, SELFPAY ==
--- NOTE | ~2024-12-12 | US_ITS ---
EXAMINATION: US FNA w image guidance, US FNA additional DATE: 12/12/2024 13:58 INDICATION: Multinodular goiter TECHNIQUE: A time-out was performed to verify the patient's name, date of , and procedure to be performed . The procedure and its benefits and risks were discussed with the patient. Risks specifically discus sed included bleeding and infection. The patient understood the risks and agreed to proceed. The neck was prepped and draped in the usual sterile manner. A total of 8 mL 1% lidocaine was used for local anesthesia. Attention was first turned to the more caudal left thyroid nodule. 6 passes were made wit h a 25G needle into the lesion. Appropriate needle location was documented with continuous sonograph ic guidance. Attention was then turned to the more cephalad left thyroid nodule. An additional 6 pass es were made with a 25G needle into the lesion again with continuous sonographic guidance. A sterile bandage was applied. There were no immediate complications. FINDINGS: Grayscale ultrasound images demonstrate biopsy needles advanced into a 1.6 cm mixed solid and cystic nodule at the inferior left thyroid lobe. Subsequent images demonstrate biopsy needles advanced into the smaller 1.4 cm predominantly solid nodule in the more superior left thyroid lobe. These nodules c orrespond to the nodules measured at 1.8 cm and 1.2 cm nodules respectively on the ultrasound perform ed on 03/06/2024. IMPRESSION: 1. Successful ultrasound-guided fine needle aspiration of a 1.6 cm nodule at the inferior left thyro id lobe. 2. Successful ultrasound-guided fine-needle aspiration of a 1.4 cm nodule in the more superior left t hyroid lobe. Reviewed, dictated and finalized at location A. IMPRESSION: 1. Successful ultrasound-guided fine needle aspiration of a 1.6 cm nodule at t he inferior left thyroid lobe. 2. Successful ultrasound-guided fine-needle aspiration of a 1.4 cm nodule in th e more superior left thyroid lobe.
--- OUTSIDE RECORDS SUMMARY | 2024-12-12 13:29 | XMS_ITS | Clinical Summary ---
Author Organization [facility] Address [address] [place] [address] Care Team Providers Care Maintenance Painter Name Role Phone Keo Lipscomb MD Primary Care Provider Massimo Danielson MD Unavailable [phone] Jhonatan Gabriel MD Unavailable [phone] Allergies Active Allergy Reactions Criticality Noted Date Comments Ciprofloxacin GI Upset High 12/16/2021 Penicillin G Rash High 12/16/2021 Medications sildenafil 50 MG tablet Take 50 mg by mouth as needed. 09/29/2021 Active LORazepam 1 MG tablet Take 0.5-1 mg by mouth 2 (two) times daily as needed. FOR ANXIETY 12/13/2021 Active melatonin 3 MG tablet Take 3 mg by mouth nightly. Active multi vitamin/mineral s tablet Take 1 tablet by mouth daily. Active pseudoephedrine 30 MG tablet Take 30 mg by mouth every 4 (four) hours as needed for Congestion. Active omega-3 fatty acid 500 MG capsule Take 1,000 mg by mouth daily. Active diphenhydrAMINE (BENADRYL) 25 MG capsule Take 25 mg by mouth every 6 (six) hours as needed for Itching. Active famotidine (PEPCID) 10 MG tablet Take 10 mg by mouth 2 (two) times daily. Active Active Problems No known active problems Immunizations Name Administration Dates Next Due In[employer] ([employer]) COVID-19 AD26 VACCINE 0.5 ML IM SUSP 12/28/2020 MODERNA COVID-19, 6-11 Prima ry (DARK BLUE CAP) (previous 18+ monovalent booster), mRNA, LNP-S,PF, 50 mcg/ 0.50mL dose 12/06/2021 Family History Medical History Relation Comments Clotting Disorder Brother Hypertension Father Stroke Father Colon Cancer Maternal Grandfather Dementia Mother Hypertension Mother Stroke Mother Heart Disease Paternal Grandfather Relation Status Comments Brother suspected to hav e had a clotting disorder, smoker, was in the retirement and suddenly, hx of clots, collapsed multiple times for clots in legs, on blood thinner Daughter Alive Father (Age 87) Maternal Grandfather Mother (Age 87) Paternal Grandfather Son Alive Social History Tobacco Use Types Packs/Day Years Used Date Smoking Tobacco: Every Day Cigarettes 0.3 45 Smokeless Tobacco: Never Tobacco Cessation:Ready to Q uit: Yes; Counseling Given: No Comments:1-2 cigarettes per day- has cut down from 1/2 ppd to 1/4 ppd a few years ago to about 1 cigarette a day now Alcohol Use Standard Drinks/Week Comments Yes 1 (1 standard drink = 0.6 oz pur e alcohol) socially PHQ-2 Answer Date Recorded PHQ-2 Score - If the patient scores above 3, please move on to questions 3-9 2 06/14/2022 Sex and Gender Information Value Date Recorded Sex Assigned at Not on file Legal Sex Male 11:30 AM CDT Gender Identity Male 01/31/2022 12:31 PM CDT Sexual Orientation Straight 01/31/2022 12 :31 PM CDT Last Filed Vital Signs Vital Sign Reading Time Taken Comments Blood Pressure 151/87 06/14/2022 10:49 AM CDT Pulse 65 06/14/2022 10:36 AM CDT Temperature 36.5 C (97.7 F) 06/14/2022 10:36 AM CDT Respiratory Rate 18 06/14/2022 10:36 AM CDT Oxygen Saturation 98% 06/14/2022 10:36 AM CDT Inhaled Oxygen Concentration - - Weight 91.2 kg (201 lb) 06/14/2022 10:36 AM CDT Height 172.7 cm (5' 8 ) 06/14/2022 10:36 AM CDT Body Mass Index 30.56 06/14/2022 10:36 AM CDT Plan of Treatment Health Maintenance Due Date Last Done Comments Colorectal Cancer Screening Colonoscopy (10 Years) 1956 Pneumococcal Vaccine: 65+ Years (1 of 2 - PCV) 1962 Hepatitis C 1974 DTaP, Tdap and Td Vaccines ( 1 - Tdap) 12/23/1975 Zoster Vaccines (1 of 2) 2006 COVID-19 Vaccine (3 - 2023-2 5 season) 2024 12/06/2021, 12/28/2020 Influenza Adult (#1) 2024 RSV Immunization or 60+ Years (1 - 1-dose 75+ series) 12/23/2031 Meningococcal B Vaccine Aged Out No l onger eligible based on patient's age to complete this topic Meningococcal Vaccine Aged Out No heriberto alex eligible based on patient's age to complete this topic RSV Immunizations Under 20 Months Aged Out No longer eligible b ased on patient's age to complete this topic Insurance [employer] OPEN ACCESS [facility] Care Teams Maintenance Painter Relationship Specialty Start Date End Date Keo Lipscomb MD [address] [place] [address] PCP - General FAMILY PRACTICE 01/11/22 Massimo Danielson MD [address] [facility] [address] [place] [address] CARDIOVASCULAR DISEASE 02/23/22 Jhonatan Gabriel MD [facility] [address] [place] [address] CARDIOVASCULAR DISEASE 02/23/22
--- OUTSIDE RECORDS SUMMARY | 2024-12-12 13:30 | XMS_ITS | CONTINUITY OF CARE DOCUMENT ---
Author Name rajwinder purdy Address Unknown Organization [facility] Office Address [address] [place] [address] [address] [place] [address] Phone [phone] Care Team Providers Care Mill Machinist Name Role Phone Nery REYES, Jhonatan Wiggins Unavailable Dengwendolyn SURFACE WATER MANAGER, Elba Unavailable [phone] Dengwendolyn SURFACE WATER MANAGER, Elba Unavailable [phone] PROBLEMS Condition Status Date Provider Notes Family history of CVA or stroke active Dieudonne Gabriel MD TOBACCO USE active Jhonatan Gabriel MD Personal history of COVID-19 active Jhonatan Gabriel MD RBBB active Jhonatan Gabriel MD Cardiology examination active Jhontaan dorman MD ENCOUNTERS Date Type Provider Location Encounter Diag nosis - In-person encounter Office Visit Jhonatan Gabriel MD [place] [facility] Cardiology examinationRBBBPersonal history of COVID-19TOBACCO USEFamily history of CVA or stroke VITAL SIGNS Date Observation Value Provider Body Mass Index (Ratio) 29.95 kg/m2 Dieudonne Gabriel MD blood pressure, diastolic -1 mm[Hg] Li nkLogic blood pressure, systolic 120 mm[Hg] Janet kLogic blood pressure, diastolic 80 mm[Hg] Sa ra Sauer blood pressure, systolic 120 mm[Hg] Zulma a Sauer oxygen saturation, oximetry 95 % Jacqueline Sauer respiratory rate E&M 17 /min Jacqueline Si ms pulse rate 87 /min Jacqueline Sauer blood pressure, cuff size regular Sa ra Sauer weight E&M 197 [lb_av] Jacqueline Sauer height E&M 68 [in_i] Jacqueline Sauer ALLERGIES Allergy Name Onset Date Reaction Criticality Status CIPRO High Criticality active PENICILLIN High Criticality active SOCIAL HISTORY Date Observation Value Provider number of grandchildren Jhonatan Gabriel MD social history E&M S moking History: P atient currently smokes every day. Jhonatan Gabriel MD social history reviewed E&M revi ewed - no changes required Jhonatan Gabriel MD smoking history, tot al pack/day 1/2 Jacqueline Sauer cigarette use yes Jacqueline Sauer smoking status Current every day smoker S keisha Sauer INSURANCE PROVIDERS Payer name Policy type / Coverage type [place] red democrat ID [employer] OPEN ACCESS Other [id number] SOI ADVANCE DIRECTIVES Name Date DISCUSSED - NO DECISION MADE TREATMENT PLAN Date Name Performer [id number],C,V accinated J&J and moderna booster. Had covid no major sx. Jhonatan Gabriel MD [id number],S,W ill check carotid US multiple family members with CVA he himself does not have sx Jhonatan Gabriel MD [id number],C,W ill check exercise stress test with abnormal EKG Jhonatan Gabriel MD [id number],S,1-2 cigs a da y recreational smoking Jhonatan Gabriel MD Cardiology:Vaccinate d J&J and moderna booster. Had covid no major sx. Jhonatan Gabriel MD Cardiology:Will kaleigh morin carotid US multiple family members with CVA he himself does not have sx Jhonatan Gabriel MD Cardiology:Will chec k exercise stress test with abnormal EKG Jhonatan Gabriel MD Cardiology:1-2 cigs a day recrea tional smoking Jhonatan Gabriel MD Date Name Sleep Study Home HEMOGLOBIN A1c COMPREHENSIVE METABO LIC PANEL, W/EGFR Complete Echo LIPID PANEL Stress Exercise Card iolite HISTORY OF PROCEDURES Procedure Date Procedure Name Provider Procedure Notes S tatus EKG Jhonatan Gabriel MD compl eted
--- OUTSIDE RECORDS SUMMARY | 2024-12-12 13:30 | XMS_ITS | Clinical Summary ---
Author Organization [facility] Address [address] [place] [address] Care Team Prov[address] Care [address] Service Locksmith Name Role Phone Reza Qiu DO Unavailable [phone] Keo Lipscomb MD Primary Care Provider Allergies Active Allergy Reactions Criticality Noted Date Comments Ciprofloxacin Stomach upset High 12/16/2021 Penicillins Rash High 06/06/2017 Medications LORazepam (ATIVAN) 1 mg tablet TAKE 1/2 TO 1 TABLET BY MOUTH TWICE DAILY NEEDED FOR ANXIETY 03/20/2022 Active tadalafiL (CIALIS) 5 mg tablet Take 1 tablet (5 mg total) by mouth daily 01/10/2023 Active Active Problems Problem Noted Date Diagnosed Date Bifascicular block 04/13/2022 Nonrheumatic aortic valve stenosis 04/13/2022 Surgical History Surgery Date Site/Laterality Comments PROSTATE SURGERY 2017 biopsy Medical History Medical History Date Comments Covid Rbbb Sleep apnea GERD (gastroesophageal reflux disease) 2000 Anxiety 1999 Benign prostatic hyperplasia 2017 Heart disease 2020 Thyroid disease 2017 benign nodules Peptic ulceration 1980 Family History Medical History Relation Name Comments Blood Clot Brother 1 Philip Cynthia Hypertension Brother 1 Philip Cynthia Clotting disorder Brother 2 Donald Jose Luisoscar Mental illness Brother 2 Donald Nicolaskalynoscar Heart disease Father Williams Marie Hypertension Father Williams Nicolasauoscar Stroke Father Williams Marie Dementia Mother Leeann Umbauoscar Hypertension Mother Leeann Nicolasauoscar Stroke Mother Fentonra Marie Heart disease Paternal Grandfather Daleheaven Marie Stroke Paternal Grandfather Dale Marie Relation Name Status Comments Brother 1 Philip Marie Brother 2 Donald Marie Father Williams Marie Mother Leeann Marie Paternal Grandfather Dale Marie Social History Tobacco Use Types Packs/Day Years Used Date Smoking Tobacco: Some Days Cigarettes 0.1 40 E-cigarettes Smokeless Tobacco: Never Tobacco Cessation:Ready to Q uit: No; Counseling Given: Not Answered Comments:Never smoked more than 1/2 pack a day, current 1 cigarette and ecigs Personal Safety Answer Date Recorded Getting School Help Needed Not on file 11/23 Sex and Gender Information Value Date Recorded Sex Assigned at Not on file Legal Sex Male 2:26 PM CDT Gender Identity Male 04/13/2022 3:41 PM CDT Sexual Orientation Straight 05/31/2023 10 :38 AM CDT Obstetrics History Last Filed Vital Signs Vital Sign Reading Time Taken Comments Blood Pressure 110/72 06/03/2024 11:20 AM CDT Pulse 62 06/03/2024 11:20 AM CDT Temperature - - Respiratory Rate - - Oxygen Saturation 93% 06/03/2024 11:20 AM CDT Inhaled Oxygen Concentration - - Weight 90.3 kg (199 lb) 06/03/2024 11:20 AM CDT Height 172.7 cm (5' 8 ) 06/03/2024 11:20 AM CDT Body Mass Index 30.26 06/03/2024 11:20 AM CDT Plan of Treatment Health Maintenance Due Date Last Done Comments Colon Cancer Screening-Colonoscopy 1955 Depression Screening 1956 Fall Risk Assessment 1956 Hepatitis C Screening 1956 Prostate Cancer Screening-PSA 1956 DTaP/Tdap/Td Vaccine (1 - Tdap) 12/23/1967 Hepatitis B Screening 1974 Pneumococcal vaccine 65+ (1 of 2 - PCV) 12/23/1975 Abdominal Aortic Aneurysm (AAA) Screen 2021 Well Visit 65+ 2021 Covid-19 Vaccine (2 - season) 05/25/202402/2021 Influenza Vaccine (#1) 2024 Zoster Vaccine Completed 06/26/2021, 04/23/2021 Insurance [employer]ET[employer] MEDICARE Care Teams Road Service Locksmith Relationship Specialty Start Date End Date Keo Lipscomb MD PCP - General Family Practice 11/25/21 Reza Qiu DO 02/26/17
--- OUTSIDE RECORDS SUMMARY | 2024-12-12 13:30 | XMS_ITS | Referral Summary ---
Author Organization [facility] Address [address] [place] [address] Care Team Providers Care 3D Designer Name Role Phone Reza Qiu DO Unavailable [phone] Keo Lipscomb MD Primary Care Provider Allergies [...] block 04/13/2022 Nonrheumatic aortic valve stenosis 04/13/2022 Social History Tobacco Use Types Packs/Day Years [...] Orientation Straight 05/31/2023 10 :38 AM CDT Last Filed Vital Signs Vital Sign [...] 06/03/2024 11:20 AM CDT Plan of Treatment Not on file Insurance [employer] MEDICARE Care Teams 3D Designer Relationship Specialty Start Date End Date Keo Lipscomb MD PCP - General Family Practice 11/25/21 Reza Qiu DO 02/26/17
--- OUTSIDE RECORDS SUMMARY | 2024-12-12 13:30 | XMS_ITS | Encounter Summary ---
Author Organization [facility] Address [address] [place] [address] Care Team Providers Care Wastewater Design Engineer Name Role Phone Keo Lipscomb MD Primary Care Provider Massimo Danielson MD Unavailable [phone] Jhonatan Gabriel MD Unavailable [phone] Encounter Details Date Type Department Care Team (Late st Contact Info) Description 02/07/2022 MyChart Message Enc [facility] - [address] [place] [address] Eric Katz MD MRI Findings Social History Tobacco Use Types Packs/Day Years Used Date Smoking Tobacco: Every Day Cigarettes Smokeless Tobacco: Never Alcohol Use Standard Drinks/Week Comments Yes 0 (1 standard drink = 0.6 oz pur e alcohol) socially PHQ-2 Answer Date Recorded PHQ-2 Score - If the patient scores above 3, please move on to questions 3-9 2 01/11/2022 Sex and Gender Information Value Date Recorded Sex Assigned at Not on file Legal Sex Male 11:30 AM CDT Gender Identity Male 01/31/2022 12:31 PM CDT Sexual Orientation Straight 01/31/2022 12 :31 PM CDT COVID-19 Exposure Response Date Recorded In the last 10 days, have yo u been in contact with someone who was confirmed or suspected to have Coronavirus/COVID-19? No / Unsure 02/07/2022 1:42 PM CDT documented as of this encounter Plan of Treatment Not on file documented as of this encounter Visit Diagnoses Not on filedocumented in this encounter Care Teams Wastewater Design Engineer Relationship Specialty Start Date End Date Keo Lipscomb MD [address] [place] [address] PCP - General FAMILY PRACTICE 01/11/22 Massimo Danielson MD [address] [place] [address] CARDIOVASCULAR DISEASE 02/23/22 Jhonatan Gabriel MD [facility] [address] [facility] [address] [place] [address] CARDIOVASCULAR DISEASE 02/23/22 documented as of this encounter
== END 2024-12-12 12:54 | disposition home or self-care (01) ==
PROVIDERS: PCP Family Medicine; Visit Provider Internal Medicine
DX: E04.1 Nontoxic single thyroid nodule (principal); Z90.09 Acquired absence of other part of head and neck
CPT/HCPCS: 10005; 10006; 88172; 88173; 88305

== ENCOUNTER 2025-08-17 14:43 | Outpatient (CLI) | payer MEDICARE, SELFPAY ==
--- NOTE | ~2025-08-17 | CT_ITS ---
EXAMINATION:CT lung screening DATE: 08/17/2025 15:09 INDICATION: 30 pack year history of smoking. TECHNIQUE: Computed tomography (CT) of the chest was performed without intravenous contrast. Automated exposure control and iterative reconstruction technique were employed. The dose-length product (DLP) was 185.41 mGy-cm. COMPARISON: Previous CT dated 03/06/2024. FINDINGS: No focal pulmonary nodule. Mild centrilobular emphysematous lungs. No evidence of pleural or pericardial effusion or lymphadenopathy. Moderate calcific changes of aortic valve cusps. Significant coronary artery calcification of left anterior descending, left main and circumflex coronary arteries. Aneurysm of the ascending thoracic aorta, measuring 4.5 cm in AP diameter compared with 4.1 cm on 03/06/2024. IMPRESSION: 1. Emphysematous lungs without focal pulmonary lesions. Continue annual low-dose screening. Lung RADS category 2 2. Multivessel coronary artery calcification. Mild calcific changes of aortic valve cusps. 3. Aneurysm of ascending thoracic aorta measures 4.5 cm compared with 4.1 cm on 03/06/2024. Close follow-up by echocardiogram or CT angiogram is recommended. Reviewed, dictated and finalized at location T. S OPERATOR ASSISTANT IMPRESSION: 1. Emphysematous lungs without focal pulmonary lesions. Continue annual low-dos e screening. Lung RADS category 2 2. Multivessel coronary artery calcification. Mild calcific changes of aortic v alve cusps. 3. Aneurysm of ascending thoracic aorta measures 4.5 cm compared with 4.1 cm on 03/06/2024. Close follow-up by echocardiogram or CT angiogram is recommended.
--- OUTSIDE RECORDS SUMMARY | 2025-08-17 17:28 | XMS_ITS | Clinical Summary ---
Author Organization [facility] Address [address] [place] [address] Care Team Providers Care Electronic Equipment Repairmen Name Role Phone Reza Qiu DO Unavailable [phone] Keo Lipscomb MD Primary Care Provider Allergies Active Allergy Reactions Criticality Noted Date Comments Ciprofloxacin Stomach upset High 12/16/2021 Penicillins Rash High 06/06/2017 Medications LORazepam (ATIVAN) 1 mg tabletIndication s:anxiety Take 0.5-1 tablets (0.5-1 mg total) by mouth 2 (two) times a day as needed for anxiety 2 Active tadalafiL (CIALIS) 5 mg tabletIndication s:benign prostatic hyperplasia with lower urinary tract sx Take 1 tablet (5 mg total) by mouth integrated circuits inspector before breakfast 3 Active multivitamin with minerals (Multiple Vitamin-Minerals ) tabletIndication s:Mineral Deficiency Prevention,Vitam in Deficiency Prevention Take 1 tablet by mouth integrated circuits inspector before breakfast Active omega-3 fatty acids 500 mg capsuleIndicatio ns:supplement Take 1,000 mg by mouth integrated circuits inspector before breakfast Active diphenhydrAMINE 25 mg capsuleIndicatio ns:allergies/sle ep Take 1 tablet/capsule (25 mg total) by mouth every 6 (six) hours as needed for allergies Active melatonin tabletIndication s:SLEEP Take 1 tablet (3 mg total) by mouth nightly Active aspirin 325 mgIndications:he adache Take 1 tablet (325 mg total) by mouth every 6 (six) hours as needed for headaches Active acetaminophen (TYLENOL) 500 mg tabletIndication s:Pain Take 1 tablet (500 mg total) by mouth every 6 (six) hours as needed for pain or headaches Active pseudoephedrine (SUDAFED) 30 mg tabletIndication s:Nasal Congestion Take 1 tablet (30 mg total) by mouth every 4 (four) hours as needed for congestion Active cholecalciferol (VITAMIN D-3) 2000 unit capsule Take 1 capsule (2,000 Units total) by mouth daily 30 capsule 5 Active levothyroxine (SYNTHROID) 150 mcg tablet Take 1 tablet (150 mcg total) by mouth integrated circuits inspector before breakfast 30 tablet 5 Active calcium citrate (CALCITRATE ORAL) Take 500 mg by mouth 2 (two) times a day Active sildenafiL, pulm.hypertensio n, (REVATIO) 20 mg tablet TAKE 1-5 TABLETS BY MOUTH DAILY NEEDED 5 Active Active Problems Patient Care Coordination No te Formatting of this note migh t be different from the original. Thyroid Problem Noted Date Diagnosed Date S/P complete thyroidectomy 03/11/2025 Left thyroid nodule 02/04/2025 Bifascicular block 04/13/2022 Nonrheumatic aortic valve stenosis 04/13/2022 Encounters Date Type Department Care Team Description 06/16/2025 Results Follow-Up [facility] Cardiology [address] [facility] [address] [place] [phone] Massimo Danielson MD POCT lipid panel 06/15/2025 2:00 PM CDT Office Visit [facility] Cardiology [facility] [address] [place] [phone] Massimo Danielson MD Nonrheumatic aortic valve stenosis (Primary Dx); Bifascicular block; Need for lipid screening from Last 3 Months Immunizations Immunization Administration Dates Next Due Measles 07/02/1986 Moderna Sars-cov-2 Monovalen t Booster Vaccination (12+ YRS) 12/06/2021 ZOSTER Recombinant 06/26/2021,04/23/2021 Surgical History Surgery Date Site/Laterality Comments PROSTATE SURGERY 2017 biopsy THYROIDECTOMY, PARTIAL 01/22/2017 - 02/21/2017 Right NASAL SEPTUM SURGERY 09/24/1976 - 09/23/1977 COLONOSCOPY 09/24/2022 - 09/23/2023 N/A SINUS SURGERY 1979 Medical History Medical History Date Comments Covid Rbbb GERD (gastroesophageal reflux disease) 1999 Anxiety 1998 Benign prostatic hyperplasia 2017 Heart disease 2019 Thyroid disease 2017 benign nodules Peptic ulceration 1980 Motion sickness Abnormal ECG 2021 Family History Medical History Relation Name Comments Blood Clot Brother 1 Philip Marie Hypertension Brother 1 Philip Marie Clotting disorder Brother 2 Donald Marie Mental illness Brother 2 Donald Marie Heart disease Father Williams Marie Hypertension Father Williams Marie Stroke Father Williams Marie Dementia Mother Leeann Nicolasauoscar Hypertension Mother Leeann Marie Stroke Mother Leeann Marie Heart disease Paternal Grandfather Dale Marie Stroke Paternal Grandfather Dale Marie Anesthesia problems Neg Hx Relation Name Status Comments Brother 1 Philip Nicolasauoscar Brother 2 Donald Nicolasauoscar Father Williams Marie Mother Leeann Marie Paternal Grandfather Dale Marie Social History Tobacco Use Types Packs/Day Years Used Date Smoking Tobacco: Some Days Cigarettes 0.1 40 E-cigarettes Smokeless Tobacco: Never Tobacco Cessation:Ready to Q uit: Not Asked; Counseling Given: Not Answered Comments:Used to smoke 1/2 pack a day - quit ~2022. Smokes 1 real cigarette a day but uses e-cig daily AUDIT-C Answer Date Recorded Q1: How often do you have a drink containing alcohol? 2-4 times a month 03/11/2025 Q2: How many drinks containi ng alcohol do you have on a typical day when you are drinking? Patient does not drink Q3: How often do you have si x or more drinks on one occasion? Never 03/11/2025 Personal Safety Answer Date Recorded Have you ever been in or are you currently in a harmful physical or emotional relationship or is someone making you feel afraid or unsafe? Denies 03/11/2025 Sex and Gender Information Value Date Recorded Sex Assigned at Not on file Legal Sex Male 2:26 PM CDT Gender Identity Male 04/13/2022 3:41 PM CDT Sexual Orientation Straight 05/31/2023 10 :38 AM CDT Last Filed Vital Signs Vital Sign Reading Time Taken Comments Blood Pressure 122/90 06/15/2025 1:59 PM CDT Pulse 69 06/15/2025 1:59 PM CDT Temperature 36.4 C (97.5 F) 03/12/2025 8:04 AM CDT Respiratory Rate 18 03/12/2025 8:04 AM CDT Oxygen Saturation 96% 06/15/2025 1:59 PM CDT Inhaled Oxygen Concentration - - Weight 93.9 kg (207 lb) 06/15/2025 1:59 PM CDT Height 172.7 cm (5' 8) 06/15/2025 1:59 PM CDT Body Mass Index 31.47 06/15/2025 1:59 PM CDT Plan of Treatment Health Maintenance Due Date Last Done Comments Colon Cancer Screening-Colonoscopy 1955 Depression Screening 1955 Hepatitis C Screening 1955 Prostate Cancer Screening-PSA 1956 DTaP/Tdap/Td Vaccine (1 - Tdap) 12/23/1967 Hepatitis B Screening 1974 Pneumococcal vaccine 65+ (1 of 2 - PCV) 12/23/1975 Abdominal Aortic Aneurysm (AAA) Screen 2021 Well Visit 65+ 2021 Covid-19 Vaccine ( - season) 2025, 12/28/2020 Influenza Vaccine (#1) 2025 Fall Risk Assessment 03/12/2026 03/12/2025 Zoster Vaccine Completed 06/26/2021, 04/23/2021 Procedures Procedure Name Priority Date/Time Associated Diagnosis Comments POCT LIPID PANEL Routine 06/15/2025 1:09 PM CDT Need for lipid screening from Last 3 Months Results * (ABNORMAL) POCT lipid panel (06/15/2025 1:09 PM CDT) Cholesterol, POC 214 <200 MG/DL HDL, POC 43 >=40 mg/dL Triglycerides, POC 145 <=149 mg/dL LDL Cholesterol POC 142(A) <=129 mg/dL Chol/HDL Ratio, POC 3.3 NONE Non-HDL Cholesterol, POC 171 NONE mg/dL Cholesterol Total, POC 214(A) 30 - 199 mg/dL Capillary blood 06/15/2025 1 :09 PM CDT Massimo Danielson MD POINT OF CARE TEST ORDER CAPRICE Final Result from Last 3 Months Insurance AETNA MEDICARE AETNA MEDICARE Advance Directives For more information, please contact: [phone] * Full Code (Latest Code Status on File) Date Activated Date Inactivated Comments 03/11/2025 4:52 PM 03/12/2025 3:28 PM Care Teams Electronic Equipment Repairmen Relationship Specialty Start Date End Date Keo Lipscomb MD PCP - General Family Practice 11/25/21 Reza Qiu DO 02/26/17
--- OUTSIDE RECORDS SUMMARY | 2025-08-17 17:28 | XMS_ITS | Encounter Summary ---
Author Organization [facility] Address [address] [place] [address] Care Team Providers Care Combined Rail Operator Name Role Phone Reza Qiu DO Unavailable [phone] Keo Lipscomb MD Primary Care Provider Encounter Details Date Type Department Care Team (Late st Contact Info) Description 06/16/2025 Results Follow-Up [facility] Cardiology [address] [facility] [address] [facility] [address] [place] [address] Massimo Danielson MD [address] [facility] [address] [place] [address] POCT lipid panel Social History Tobacco Use Types Packs/Day Years Used Date Smoking Tobacco: Some Days Cigarettes 0.1 40 E-cigarettes Smokeless Tobacco: Never Comments:Used to smoke 1/2 p ack a day - quit ~2022. Smokes 1 [...] Orientation Straight 05/31/2023 10 :38 AM CDT documented as of this encounter Miscellaneous Notes * Telephone Encounter - Alivia Grayson RN - 06/16/2025 1:29 PM CDT LM for pt that the office is aware when we do in office cholesterol testing that pt's are not fasting. Dr was given results during visit and would have addressed concerns at that time. Call with additional questions. documented in this encounter Plan of Treatment Not on file documented as of this encounter Visit Diagnoses Not on filedocumented in this encounter Care Teams Combined Rail Operator Relationship Specialty Start Date End Date Keo Lipscomb MD PCP - General Family Practice 11/25/21 Reza Qiu DO 02/26/17 documented as of this encounter
--- OUTSIDE RECORDS SUMMARY | 2025-08-17 17:28 | XMS_ITS | Clinical Summary ---
Author Organization [facility] Address [address] [place] [address] Care Team Providers Care Mate Fourth Name Role Phone Unavailable Primary Care Provider Unavailabl e Source Comments [facility],non-owned Affiliates and Associated Physician Practices is amultiple site organization consisting of ambulatory clinics and hospital sitesin [place], [place], [place] and [place]. This disclosure is being madepursuant to the Care Everywhere program and may not contain all information available regarding this patient. Last updated 18.[facility] Social History Tobacco Use Types Packs/Day Years Used Date Smoking Tobacco: Never Assessed Sex and Gender Information Value Date Recorded Sex Assigned at Not on file Legal Sex Male 7:12 AM FILM REPLACEMENT ORDERER Gender Identity Not on file Sexual Orientation Not on file Plan of Treatment Health Maintenance Due Date Last Done Comments COLOGUARD (AGES 45-75) - COL ON CA SCREENING 1956 COLON MONITORING 1956 COLONOSCOPY - COLON CA SCREENING 1956 CT COLONOGRAPHY - COLON CA SCREENING 1956 Colorectal Cancer Screening 1956 FIT - COLON CA SCREENING 1956 FLEX SIG - COLON CA SCREENING 1956 LIPID TESTING 1956 HEPATITIS C SCREENING 12/18/1974 DTAP/TDAP/TD VACCINES (1 - Tdap) 12/23/1975 PNEUMOCOCCAL VACCINE 50+ (1 of 1 - PCV) 2006 ZOSTER VACCINE (1 of 2) 2006 DEPRESSION SCREENING 09/24/2024 COVID-19 VACCINE (1 - 2024-2 6 season) 2025 INFLUENZA VACCINE (#1) 2025 Respiratory Syncytial Virus (RSV) Vaccine Pt: or over 60 yrs (1 - 1-dose 75+ series) 12/23/2031 HEPATITIS B VACCINE Aged Out No longe r eligible based on patient's age to complete this topic HIB VACCINE Aged Out No longer eligi ble based on patient's age to complete this topic HPV VACCINE Aged Out No longer eligi ble based on patient's age to complete this topic MENINGOCOCCAL (Group B) VACC INE SHARED DECISION-MAKING Aged Out No longer eligibl e based on patient's age to complete this topic MENINGOCOCCAL GROUPS A/C/Y/W VACCINE Aged Out No longer eligible b ased on patient's age to complete [place] [address] AETNA
--- OUTSIDE RECORDS SUMMARY | 2025-08-17 17:28 | XMS_ITS | Encounter Summary ---
Author Organization [facility] Address [address] [place] [address] Care Team Providers Care Geriatric Assistant Name Role Phone Keo Lipscomb MD Primary Care Provider Massimo Danielson MD Unavailable [phone] Jhonatan Gabriel MD Unavailable Encounter Details Date Type Department Care Team (Late st Contact Info) Description 02/07/2022 MyChart Message Enc [facility] [place] [address] [place] [address] Eric Katz MD MRI Findings Social History [...] on filedocumented in this encounter Care Teams Geriatric Assistant Relationship Specialty Start Date End Date Keo Lipscomb MD [address] [place] [address] PCP - General FAMILY PRACTICE 01/11/22 Massimo Danielson MD [address] [place] [address] CARDIOVASCULAR DISEASE 02/23/22 Jhonatan Gabriel MD [facility] [place] [place] [address] [facility] [address] [place] [address] CARDIOVASCULAR DISEASE 02/23/22 documented as of this encounter
--- OUTSIDE RECORDS SUMMARY | 2025-08-17 17:28 | XMS_ITS | Clinical Summary ---
Author Organization [facility] Address [address] [place] [address] Care Team Providers Care Motor Checker Name Role Phone Keo Lipscomb MD Primary Care Provider Massimo Danielson MD Unavailable [phone] Jhonatan Gabriel MD Unavailable [phone] Allergies Active Allergy Reactions Criticality Noted Date [...] Active Problems No known active problems Immunizations Immunization Administration Dates Next Due [employer] ([employer]) COVID-19 AD26 VACCINE 0.5 ML IM SUSP [...] a clotting disorder, smoker, was in the group home and suddenly, hx of clots, collapsed multiple [...] 10:36 AM CDT Height 172.7 cm (5' 8) 06/14/2022 10:36 AM CDT Body Mass Index 30.56 06/14/2022 10:36 AM CDT Plan of Treatment Health Maintenance Due Date Last Done Comments Colorectal Cancer Screening Colonoscopy (10 Years) 1956 Hepatitis C 1974 DTaP, Tdap and Td Vaccines ( 1 - Tdap) 12/23/1975 Pneumococcal Vaccine: 50+ Years (1 of 2 - PCV) 12/23/1975 Zoster Vaccines (1 of 2) 2006 COVID-19 Vaccine (3 - 2024-2 6 season) 2025 12/06/2021, 12/28/2020 Influenza Adult (#1) 2025 RSV Immunization or 60+ Years (1 - 1-dose 75+ series) 12/23/2031 Hepatitis A Vaccines Aged Out No long er eligible based on patient's age to complete this topic Meningococcal B Vaccine Aged Out No l onger eligible based on patient's age to complete this topic Meningococcal Vaccine Aged Out No heriberto alex eligible based on patient's age to complete this topic RSV Immunizations Under 20 Months Aged Out No longer eligible b ased on patient's age to complete [place] [address] [employer] OPEN ACCESS [facility] Care Teams Motor Checker Relationship Specialty Start Date End Date Keo Lipscomb MD [address] [place] [address] PCP - General FAMILY PRACTICE 01/11/22 Massimo Danielson MD [address] [facility] [address] [place] [address] CARDIOVASCULAR DISEASE 02/23/22 Jhonatan Gabriel MD [facility] [place] [address] [place] [address] [address] CARDIOVASCULAR DISEASE 02/23/22
== END 2025-08-17 14:44 | disposition home or self-care (01) ==
PROVIDERS: PCP Family Medicine; Visit Provider Family Medicine
DX: Z12.2 Encounter for screening for malignant neoplasm of respiratory organs (principal); Z87.891 Personal history of nicotine dependence
CPT/HCPCS: 71271